=== PATIENT | female | born 1985 | race Native Hawaiian/Other Pacific Islander ===

== ENCOUNTER 2017-11-28 11:00 | Outpatient (CLI) | payer MEDICAID | END 2017-11-28 11:01 | disposition home or self-care (01) | LOC: SLR 11:00 | PROVIDERS: ATTEND Otolaryngology | DX: G47.30 Sleep apnea, unspecified (principal) | CPT/HCPCS: G0399 ==

== ENCOUNTER 2019-01-12 07:11 | Day surgery (SDC) | payer MEDICAID ==
[~2019-01-12 07:11] MED LIST: NACL 0.9% 1000 ML 1,000 ML IV SCH
--- NOTE | 2019-01-12 08:15 | Anesthesia Consultation ---
Anesthesia Consult and Med Hx Date of service: 01/12/19 - Airway Anesthetic Teeth Evaluation: Good ROM Head & Neck: Adequate Mental/Hyoid Distance: Adequate Mallampati Class: Class III Intubation Access Assessment: Possibly Difficult - Pulmonary Exam CTA: Yes - Cardiac Exam Cardiac Exam: RRR - Pre-Operative Health Status ASA Pre-Surgery Classification: ASA3 Proposed Anesthetic Plan: MAC - Pulmonary Hx Smoking: Yes (Quit 10 years ago ) SOB: Yes Hx Sleep Apnea: Yes (pending sleep study ) - Cardiovascular System Hx Hypertension: Yes (taken off meds 3months ago ) - Other Systems Hx Obesity: Yes (BMI 47)
--- NOTE | 2019-01-12 08:17 | Anesthesia Day of Surgery ---
Anesthesia Day of Surgery - Day of Surgery Patient Examined: Yes Patient H&P Reviewed: Yes Patient is NPO: Yes
[2019-01-12] MEDS ORDERED: WATER FOR IRRIG STERILE IR ONE (09:00)
[2019-01-12] MEDS ORDERED: DIPRIVAN 10 MG/ML IV ONE (09:08)
[2019-01-12] MEDS ORDERED: XYLOCAINE 2% INFILTRATI ONE (09:08)
--- NOTE | 2019-01-12 10:05 | Operative Report ---
PREOPERATIVE DIAGNOSIS: Morbid obesity. POSTOPERATIVE DIAGNOSIS: Gastritis. PROCEDURE: Esophagogastroduodenoscopy. ANESTHESIA: MAC. COMPLICATIONS: None. BLEEDING: None. SPECIMENS: None. INDICATIONS: The patient is a 33-year-old female with a history of morbid obesity. She is here for preoperative EGD in preparation for her weight loss surgery. Informed consent was obtained. DESCRIPTION OF PROCEDURE: The patient was brought to the operating GI suite where she was placed in the left lateral decubitus position and underwent MAC anesthesia. A bite block was placed and a timeout was called. A standard adult gastroscope was inserted into the oropharynx, down the esophagus, into the stomach and the first portion of the duodenum. On retroflexion view, she was noted to have no hiatal hernia. I did note evidence of gastritis in the antrum with no active bleeding. With this, the air was desufflated and suctioned. Gastroscope was removed. The patient tolerated this procedure with no issues and was transferred to the PACU in stable condition. JOB# [id number] MARIANA/ANGELICA
[2019-01-12 10:24] VITALS: BP 167/99
== END 2019-01-12 07:12 | disposition home or self-care (01) ==
LOC: GIO 07:11
PROVIDERS: ATTEND Specialist
DX: K29.70 Gastritis, unspecified, without bleeding (principal); K30 Functional dyspepsia; E66.01 Morbid (severe) obesity due to excess calories; I10 Essential (primary) hypertension; G47.30 Sleep apnea, unspecified; E66.9 Obesity, unspecified; Z68.43 Body mass index [BMI] 50.0-59.9, adult; Z98.890 Other specified postprocedural states; Z88.0 Allergy status to penicillin
CPT/HCPCS: 43235; 81025; J2704; J7030

== ENCOUNTER 2019-01-26 07:09 | Observation (INO) | payer MEDICAID ==
--- NOTE | 2019-01-21 11:55 | Anesthesia Consultation ---
Anesthesia Consult and Med Hx Date of service: 01/21/19 - Airway Anesthetic Teeth Evaluation: Good ROM Head & Neck: Adequate Mental/Hyoid Distance: Adequate Mallampati Class: Class II Intubation Access Assessment: Good - Pulmonary Exam CTA: Yes - Cardiac Exam Cardiac Exam: RRR - Pre-Operative Health Status ASA Pre-Surgery Classification: ASA3 Proposed Anesthetic Plan: General - Pulmonary Hx Smoking: Yes (FOR 1 YEAR AT AGE 18) Hx Sleep Apnea: Yes - Cardiovascular System Hx Hypertension: Yes (2017;PCP STOP MED DUE TO NAUSEA; LAST BP 172/111 ) - Central Nervous System Hx Psychiatric Problems: No - Other Systems Hx Alcohol Use: Yes Hx Substance Use: No Hx Obesity: Yes
[2019-01-26] MEDS: TRANSDERM-SCOP TD SCH (06:40)
[~2019-01-26 07:09] MED LIST changes: +FLAGYL 500 MG/100 ML 500 MG/100 ML BAG IV NR; +LACTATED RINGERS 1,000 ML IV SCH; +LEVAQUIN 500MG/100ML 500 MG/100 ML BAG IV NR; +LOVENOX SUB-Q NR; -NACL 0.9% 1000 ML 1,000 ML IV SCH; +NEURONTIN PO NR; +TYLENOL PO NR
[2019-01-26] MEDS ORDERED: MARCAINE-EPI 0.5%-1:200,000 INFILTRATI ONE ×2 (07:13→07:54)
[2019-01-26] MEDS ORDERED: XYLOCAINE 1% 20 mL ONE (07:13)
[2019-01-26] MEDS ORDERED: XYLOCAINE MPF 2% ONE (07:23)
[2019-01-26] MEDS ORDERED: ZEMURON IV ONE (07:23)
[2019-01-26] MEDS ORDERED: SUBLIMAZE ONE (07:23)
[2019-01-26] MEDS ORDERED: DIPRIVAN 10 MG/ML IV ONE ×2 (07:24→09:40)
[2019-01-26] MEDS ORDERED: LEVAQUIN 500MG/100ML 500 MG/100 ML BAG IV ONE (07:28)
[2019-01-26] MEDS ORDERED: FLAGYL 500 MG/100 ML 500 MG/100 ML BAG IV ONE (07:28)
[2019-01-26] MEDS ORDERED: XYLOCAINE 1% 20 mL INFILTRATI ONE (07:54)
[2019-01-26] MEDS ORDERED: NACL 0.9% IR ONE ×2 (07:54)
[2019-01-26 08:22] LABS: Bacteria,Urine 4+ /HPF (Negative); Bilirubin,Urine NEG (Negative); Blood,Urine NEG (Negative); Color,Urine Yellow (Yellow); Mucus,Urine 3+ /HPF; Protein,Urine <15 mg/dL mg/dL (Negative); Urobilinogen,Urine < 2.0 mg/dL (<2.0)
[2019-01-26 08:27] LABS: WBC,Urine < 1.0 /HPF (0.0-6.0)
[2019-01-26] MEDS ORDERED: SUBLIMAZE IV PRN (09:27)
--- NOTE | 2019-01-26 09:27 | Anesthesia Day of Surgery ---
Anesthesia Day of Surgery - Day of Surgery Patient Examined: Yes Patient H&P Reviewed: Yes Patient is NPO: Yes
[2019-01-26] MEDS ORDERED: ZOFRAN ONE (09:38)
[2019-01-26] MEDS ORDERED: DILAUDID ONE (09:38)
[2019-01-26] MEDS ORDERED: BLOXIVERZ ONE (09:38)
[2019-01-26] MEDS ORDERED: ROBINUL ONE (09:38)
[2019-01-26] MEDS ORDERED: DECADRON ONE (09:38)
[2019-01-26] MEDS ORDERED: REGLAN IV PRN (09:47)
[2019-01-26] MEDS ORDERED: ZOFRAN IV PRN (09:47)
[2019-01-26] MEDS ORDERED: QUELICIN ONE (10:16)
[2019-01-26] MEDS: APRESOLINE IV PRN ×2 (10:35→19:34)
[2019-01-26] MEDS ORDERED: APRESOLINE ONE (10:43)
[2019-01-26] MEDS: NORCO PO PRN (13:01)
[2019-01-26] MEDS: NORVASC PO SCH (13:01)
[2019-01-26] MEDS: MYLICON PO PRN (13:01)
--- NOTE | 2019-01-26 14:46 | Post Anesthesia Evaluation ---
- Post Anesthesia Evaluation Patient Participated: Yes Airway Patent: Yes Stable Respiratory Function: Yes Nausea/Vomiting: No Temp > 96.8F: Yes Pain Manageable: Yes Adequeate Hydration: Yes Anesthesia Complications: No
[2019-01-26] MEDS: DILAUDID IV PRN ×2 (19:35→22:55)
[2019-01-26] MEDS: LACTATED RINGERS 1,000 ML IV SCH (22:56)
[2019-01-27] MEDS: MYLICON PO PRN (01:00)
[2019-01-27] MEDS: APRESOLINE IV PRN (01:01)
[2019-01-27] MEDS: NORCO PO PRN ×2 (04:37→10:31)
[2019-01-27] MEDS: DILAUDID IV PRN (07:09)
[2019-01-27] MEDS: LACTATED RINGERS 1,000 ML IV SCH (07:11)
--- NOTE | 2019-01-27 07:41 | Discharge Summary ---
Providers - Providers Date of Admission: 01/26/19 09:47 Date of discharge: 01/27/19 Attending physician: ANGELI TAMEZ Primary care physician: JENNIFER COLLINS MD Hospitalization Reason for admission: postop Condition: Good Procedures: 01/26/19: Laparoscopic Jose-en-Y gastric bypass Hospital course: 33F admitted after her operation for routine postop monitoring. She had no immediate complications, tolerated a CLD, ambulated, and was dc POD1. Disposition: DC-01 TO HOME OR SELFCARE Core Measure Documentation - Palliative Care Palliative Care/ Comfort Measures: Not Applicable - Core Measures Any of the following diagnoses?: none - VTE Discharge Requirements Deep Vein Thrombosis/Pulmonary Embolism Present on Admission: No - Acute [place] Discharge Requirements Aspirin at discharge: No Reason for no aspirin on DC: Surgical contraindication - Heart Failure Discharge Requirements SAÚL/ARB for LVSD if EF <40%: Not Applicable - Stroke Discharge Requirements Statin for LDL = or >70 mg/dl on DC: Not Applicable Exam - Physical Exam Narrative exam: Gen: AAO, NAD Heart: RRR Lungs: CTAB Abd: Soft, obese, NT, ND, bandages cdi - Constitutional Vitals: Temp Pulse Resp BP Pulse Ox 97.8 F 89 16 139/73 95 01/27/19 04:39 01/27/19 04:39 01/27/19 07:09 01/27/19 04:39 01/27/19 04:39 Plan Diet: clear liquids Wound: keep clean and dry Special Instructions: no heavy lifting Additional Instructions: mark Tamez as scheduled Follow up with: JENNIFER COLLINS MD [Primary Care Provider] - 7 Days
[2019-01-27 07:52] LABS: Basophils # (Auto) 0.1 K/mm3 (0.0-0.1); Basophils % (Auto) 0.5 % (0.0-1.8); Eosinophils % (Auto) 0.1 % (0.0-4.3); Hematocrit 40.8 % (30.3-42.9); Hemoglobin 13.6 gm/dl (10.1-14.3); Lymphocytes # (Auto) 2.5 K/mm3 (1.2-5.4); Lymphocytes % (Auto) 18.5 % (13.4-35.0); Mean Corpuscular HGB Conc 33 % (30-34); Mean Corpuscular Volume 87 fl (79-97); Monocytes # (Auto) 1.1 K/mm3 (0.0-0.8); Monocytes % (Auto) 8.5 % (0.0-7.3); Platelet Count 219 K/mm3 (140-440); Red Blood Count 4.72 M/mm3 (3.65-5.03); Red Cell Distribution Width 13.2 % (13.2-15.2)
[2019-01-27] MEDS: TRANSDERM-SCOP TD SCH (08:07)
[2019-01-27 08:10] LABS: Alanine Aminotransferase 108 units/L (7-56); Albumin 3.7 g/dL (3.9-5); BUN/Creatinine Ratio 20; Blood Urea Nitrogen 10 mg/dL (7-17); Calcium 8.9 mg/dL (8.4-10.2); Hemolysis Index 5
[2019-01-27] MEDS ORDERED: LOVENOX SUB-Q SCH (10:00)
[2019-01-27] MEDS: NORVASC PO SCH (10:34)
[2019-01-27 12:05] VITALS: BP 155/75
== END 2019-01-27 13:00 | disposition home or self-care (01) ==
LOC: OR 07:09 → 3B-SURG 09:47
PROVIDERS: ADMIT Specialist; ATTEND Specialist
DX: E66.01 Morbid (severe) obesity due to excess calories (principal); K44.9 Diaphragmatic hernia without obstruction or gangrene; K30 Functional dyspepsia; I10 Essential (primary) hypertension; R06.02 Shortness of breath; G43.909 Migraine, unspecified, not intractable, without status migrainosus; G47.33 Obstructive sleep apnea (adult) (pediatric); Z98.890 Other specified postprocedural states; Z68.41 Body mass index [BMI] 40.0-44.9, adult; Z88.0 Allergy status to penicillin; Z87.898 Personal history of other specified conditions
CPT/HCPCS: 36415; 43280; 43644; 80053; 81001; 85025; 94760; 96372; 96374; 96375; 96376; A4217; G0378; J0330; J0360; J1100; J1170; J1650; J1956; J2405; J2704; J2710; J3010; J7120